=== PATIENT | female | born 2000 | race Caucasian/White ===

== ENCOUNTER 2023-10-06 21:53 | Emergency (ER) | payer SELFPAY ==
[~2023-10-06] VITALS: Ht 154.9 cm; Wt 54.0 kg
[2023-10-06 22:20] VITALS: BP 104/48; PULSE 102; RESP 20; TEMP 99.6; O2SAT 98
[2023-10-06] MEDS ORDERED: TETANUS, DIPHTHERIA, PERTUSSIS VAC/PF 0.5ML (>10YR OLD) IM ONE (22:30)
[2023-10-06] MEDS ORDERED: AMOX1TAB16 MT (22:35)
== END 2023-10-06 23:34 | disposition home or self-care (01) ==
LOC: ER 22:03
DX: S51.832A Puncture wound without foreign body of left forearm, initial encounter (principal); W54.0XXA Bitten by dog, initial encounter; Y93.89 Activity, other specified; Y92.89 Other specified places as the place of occurrence of the external cause; Y99.8 Other external cause status
CPT/HCPCS: 90471; 90715; 99283

== ENCOUNTER 2024-09-21 11:35 | Emergency (ER) | payer SELFPAY ==
[~2024-09-21] VITALS: Ht 152.4 cm; Wt 60.3 kg
[~2024-09-21 11:35] MED LIST: AMOX1TAB16 MT
[2024-09-21 11:40] VITALS: BP 113/61; PULSE 100; RESP 16; TEMP 98.2; O2SAT 100
[2024-09-21] MEDS: TETRACAINE 0.5% OPHTH DROPS 4ML RIGHTEYE ONE (15:13)
[2024-09-21] MEDS: FLUORESCEIN SODIUM 1MG/STRIP RIGHTEYE ONE (15:13)
[2024-09-21] MEDS ORDERED: GLYC30DR4 RIGHTEYE (15:39)
== END 2024-09-21 16:58 | disposition home or self-care (01) ==
LOC: ER 11:35
DX: H57.11 Ocular pain, right eye (principal)
CPT/HCPCS: 99282